=== PATIENT | male | born 1975 | race Two or more races ===

== ENCOUNTER 2018-01-01 11:21 | Outpatient (CLI) | payer OTHER | END 2018-01-01 23:59 | disposition home or self-care (01) | LOC: WOU 11:21 | PROVIDERS: ATTEND Specialist | DX: S61.411A Laceration without foreign body of right hand, initial encounter (principal); X58.XXXA Exposure to other specified factors, initial encounter; Y92.89 Other specified places as the place of occurrence of the external cause; D57.1 Sickle-cell disease without crisis | CPT/HCPCS: A6209; A6402; G0463; Z7610 ==

== ENCOUNTER 2018-01-08 11:00 | Outpatient (CLI) | payer OTHER | END 2018-01-08 23:59 | disposition home or self-care (01) | LOC: WOU 11:00 | PROVIDERS: ATTEND Specialist | DX: S61.411D Laceration without foreign body of right hand, subsequent encounter (principal); W19.XXXD Unspecified fall, subsequent encounter; D57.1 Sickle-cell disease without crisis | CPT/HCPCS: 99214; A6402 ×2; Z7610; G0463 ==

== ENCOUNTER 2018-01-22 13:03 | Outpatient (CLI) | payer OTHER | END 2018-01-22 23:59 | disposition home or self-care (01) | LOC: WOU 13:03 | PROVIDERS: ATTEND Specialist | DX: S61.411D Laceration without foreign body of right hand, subsequent encounter (principal); W19.XXXD Unspecified fall, subsequent encounter; D57.1 Sickle-cell disease without crisis | CPT/HCPCS: 99213; Z7610; A6402; G0463 ==